=== PATIENT | female | born 2000 | race African-American/Black ===

== ENCOUNTER 2022-03-21 14:35 | Emergency (ER) | payer OTHER ==
[~2022-03-21] VITALS: Ht 162.6 cm; Wt 68.2 kg
[2022-03-21 16:56] VITALS: BP 125/70
== END 2022-03-21 17:03 | disposition home or self-care (01) ==
LOC: EMS 14:40
DX: S93.602A Unspecified sprain of left foot, initial encounter (principal); X58.XXXA Exposure to other specified factors, initial encounter; Y93.01 Activity, walking, marching and hiking; Y92.89 Other specified places as the place of occurrence of the external cause; Y99.8 Other external cause status
CPT/HCPCS: 99283